=== PATIENT | male | born 1960 | race Caucasian/White ===

== ENCOUNTER → 2017-06-10 | Outpatient (CLI) | payer OTHER ==
[~2017-06-10] MED LIST: Aspirin EC81 MG PO; CHOL10002 PO; COLE1 PO; GEMF600 PO; GLIP5 PO; INSULANPEN SC; METF500 PO; OMEG1CAP30 PO; Omeprazole20 M1 PO; ZESTORETIC 20-121 EA PO
[2017-06-10 16:44] LABS: Protein, Urine Random 23.7 mg/dL (0.0-11.9)
[2017-06-10 16:50] LABS: Creatinine, Urine Random 90.9 mg/dL (27.00-270.00)
== END | disposition home or self-care (01) ==
LOC: OLS 13:24
PROVIDERS: Internal Medicine
DX: N18.3 Chronic kidney disease, stage 3 (moderate) (principal)
CPT/HCPCS: 82570; 84156

== ENCOUNTER 2021-03-05 08:22 | Inpatient (IN) | payer OTHER ==
[~2021-03-05] VITALS: Ht 172.7 cm; Wt 82.6 kg
[2021-03-05] MEDS ORDERED: LISI20 PO (09:02)
[2021-03-05] MEDS ORDERED: [UNRECOGNIZED DRUG - CODE] PO (09:02)
[2021-03-05] MEDS ORDERED: GEMFIBROZIL600 MG PO (09:02)
[2021-03-05] MEDS ORDERED: GLIP10ER PO (09:03)
[2021-03-05 09:06] LABS: BASOPHILS ABSOLUTE AUTO 0.05 K/mm3 (0.00-0.23); BASOPHILS PERCENT AUTO 0 % (0-2); EOSINOPHILS ABSOLUTE AUTO 0.15 K/mm3 (0.00-0.68); EOSINOPHILS PERCENT AUTO 1 % (0-6); Hematocrit 38.8 % (37.0-53.0); Hemoglobin 13.7 g/dL (13.5-17.5); IMMATURE GRAN ABSOLUTE AUTO 0.05 K/mm3 (0.00-0.10); IMMATURE GRAN PERCENT AUTO 0 % (0-1); LYMPHOCYTES ABSOLUTE AUTO 2.07 K/mm3 (0.84-5.20); LYMPHOCYTES PERCENT AUTO 14 % (21-46); MONOCYTES ABSOLUTE AUTO 0.83 K/mm3 (0.16-1.47); MONOCYTES PERCENT AUTO 6 % (4-13); Mean Corpuscular HGB 30.9 pg (26.0-34.0); Mean Corpuscular HGB Conc 35.3 g/dL (31.5-36.5); Mean Corpuscular Volume 87 fL (80-100); Mean Platelet Volume 9.7 fL (9.1-12.4); NEUTROPHILS ABSOLUTE AUTO 11.46 K/mm3 (1.96-9.15); NEUTROPHILS PERCENT AUTO 79 % (41-73); Platelet Count 297 K/mm3 (150-400); RDW Coefficient Variation 12.4 % (11.7-14.2); RDW Standard Deviation 39.7 fL (35.1-46.3); Red Blood Cell Count 4.44 M/mm3 (4.30-5.90); White Blood Cell Count 14.61 K/mm3 (4.00-11.30)
[2021-03-05 09:38] LABS: Alanine Aminotransfer (ALT/SGP 19 U/L (12-78); Albumin, Blood 3.3 g/dL (3.4-5.0); Albumin/Globulin Ratio 0.7 (0.8-1.8); Alk Phos 125 U/L (50-136); Anion Gap 8 mmol/L (6-16); Aspartate Aminotrans (AST/SGOT 18 U/L (12-37); Bilirubin, Total 0.3 mg/dL (0.1-1.0); Blood Urea Nitrogen 25 mg/dL (8-24); Bun/Creatinine Ratio 26.3 (12.0-20.0); CO2, Blood 22 mmol/L (21-32); Calcium, Blood 9.5 mg/dL (8.5-10.1); Chloride, Blood 107 mmol/L (98-108); Creatinine, Blood 0.95 mg/dL (0.60-1.20); Globulin, Blood 4.5 g/dL (2.2-4.0); Glomerular Filtration Rate >60 (60-); Glucose, Blood 211 mg/dL (70-99); Potassium, Blood 3.8 mmol/L (3.5-5.5); Sodium, Blood 137 mmol/L (136-145); Total Protein, Blood 7.8 g/dL (6.4-8.2)
[2021-03-05 11:01] LABS: Anti-Xa UFH, PHA Monitoring <0.10 IU/mL; International Normalized Ratio 0.99; Prothrombin Time Results 10.4 Sec (9.7-11.5)
[2021-03-05] MEDS ORDERED: ACET500 PO (14:18)
[2021-03-05] MEDS ORDERED: IBUP600 PO (14:18)
--- NOTE | 2021-03-05 17:47 | NUR ---
PT ADMITTED TO ROOM 362 VIA STRETCHER FROM ED MOVED SELF OVER TO BED. ORIENTED TO ROOM SET UP AND BATHROOM. DENIES CHEST PAIN, VSS. TELE SET UP, SR 77. ON HEPARIN GTT. GIVEN XERALTO LOADING DOSE. DRINKING WATER AND WILL HAVE DINNER TONIGHT. AWAITING BED AT [facility] IN [place]. PT A/O X4. INSTRUCTED TO GET URINE FOR UA.
[2021-03-05 20:49] LABS: U Amphetamine Screen Not Detected; U Barbituate Screen Not Detected; U Benzodiazapine Screen Not Detected; U Buprenorphine Screen Not Detected; U Cannabinoids Screen DETECTED; U Cocaine Screen Not Detected; U Methadone Screen Not Detected; U Methamphetamine Screen Not Detected; U Opiates Screen Not Detected; U Oxycodone Screen Not Detected; U Phencyclidine Screen Not Detected; U Propoxyphene Screen Not Detected
[2021-03-06 05:51] LABS: BASOPHILS ABSOLUTE AUTO 0.06 K/mm3 (0.00-0.23); BASOPHILS PERCENT AUTO 1 % (0-2); EOSINOPHILS ABSOLUTE AUTO 0.16 K/mm3 (0.00-0.68); EOSINOPHILS PERCENT AUTO 2 % (0-6); Hematocrit 35.5 % (37.0-53.0); Hemoglobin 12.3 g/dL (13.5-17.5); IMMATURE GRAN ABSOLUTE AUTO 0.03 K/mm3 (0.00-0.10); IMMATURE GRAN PERCENT AUTO 0 % (0-1); LYMPHOCYTES ABSOLUTE AUTO 2.71 K/mm3 (0.84-5.20); LYMPHOCYTES PERCENT AUTO 31 % (21-46); MONOCYTES ABSOLUTE AUTO 0.67 K/mm3 (0.16-1.47); MONOCYTES PERCENT AUTO 8 % (4-13); Mean Corpuscular HGB 30.4 pg (26.0-34.0); Mean Corpuscular HGB Conc 34.6 g/dL (31.5-36.5); Mean Corpuscular Volume 88 fL (80-100); Mean Platelet Volume 9.8 fL (9.1-12.4); NEUTROPHILS ABSOLUTE AUTO 5.09 K/mm3 (1.96-9.15); NEUTROPHILS PERCENT AUTO 58 % (41-73); Platelet Count 251 K/mm3 (150-400); RDW Coefficient Variation 12.3 % (11.7-14.2); RDW Standard Deviation 39.8 fL (35.1-46.3); Red Blood Cell Count 4.05 M/mm3 (4.30-5.90); White Blood Cell Count 8.72 K/mm3 (4.00-11.30)
[2021-03-06 06:54] LABS: Alanine Aminotransfer (ALT/SGP 19 U/L (12-78); Albumin, Blood 2.9 g/dL (3.4-5.0); Albumin/Globulin Ratio 0.8 (0.8-1.8); Alk Phos 111 U/L (50-136); Anion Gap 8 mmol/L (6-16); Aspartate Aminotrans (AST/SGOT 17 U/L (12-37); Bilirubin, Total 0.3 mg/dL (0.1-1.0); Blood Urea Nitrogen 22 mg/dL (8-24); Bun/Creatinine Ratio 20.8 (12.0-20.0); CHOL/HDL RATIO 8.4; CO2, Blood 23 mmol/L (21-32); Calcium, Blood 8.8 mg/dL (8.5-10.1); Chloride, Blood 108 mmol/L (98-108); Cholesterol 251 mg/dL (50-200); Creatinine, Blood 1.06 mg/dL (0.60-1.20); Globulin, Blood 3.7 g/dL (2.2-4.0); Glomerular Filtration Rate >60 (60-); Glucose, Blood 194 mg/dL (70-99); HDL Cholesterol 30 mg/dL (>39); LDL/HDL RATIO 6.2; Low Density Lipoprotein Chol 185 mg/dL (0-110); Magnesium, Blood 1.6 mg/dL (1.6-2.4); Potassium, Blood 3.9 mmol/L (3.5-5.5); Sodium, Blood 139 mmol/L (136-145); Total Protein, Blood 6.6 g/dL (6.4-8.2); Triglycerides 181 mg/dL (30-160); Very Low Density Lipoprot Chol 36 mg/dL (6-32)
--- NOTE | 2021-03-06 16:50 | NUR ---
SHIFT SUMMARY PT AWAITING BED AT [facility] IN [place]. HEPARIN INCREASED THIS SHIFT TO 28.2 ML/HR ORDERED. PT GAVE HIMSELF A SPONGEBATH TODAY. IND IN ROOM. CURRENTLY RESTING IN BED WITH CALL LIGHT IN REACH. TROPONINS TRENDING DOWN. PT DENIES CP T/O SHIFT. NO OTHER ACUTE CHANGES IN ASSESSMENT AT THIS TIME. VS REVIEWED.
--- NOTE | 2021-03-07 06:38 | NUR ---
SHIFT SUMMARY PT ALERTT AND ORIENTED. STILL IN HEPARIN DRIP. NO S/S OF ADVERSE REACTION. CALL LIGHT WHITIN REACH. KEEP MONITORING
[2021-03-07 15:01] LABS: Hematocrit 33.6 % (37.0-53.0); Hemoglobin 12.2 g/dL (13.5-17.5); Mean Corpuscular HGB 30.9 pg (26.0-34.0); Mean Corpuscular HGB Conc 36.3 g/dL (31.5-36.5); Mean Corpuscular Volume 85 fL (80-100); Mean Platelet Volume 9.5 fL (9.1-12.4); Platelet Count 279 K/mm3 (150-400); RDW Coefficient Variation 12.1 % (11.7-14.2); RDW Standard Deviation 37.8 fL (35.1-46.3); Red Blood Cell Count 3.95 M/mm3 (4.30-5.90); White Blood Cell Count 9.17 K/mm3 (4.00-11.30)
--- NOTE | 2021-03-07 18:10 | NUR ---
SHIFT SUMMARY: PT A/O X 4 IND, PLEASANT AND COOPERATIVE. PT HAD NO ACUTE CHANGES THIS SHIFT, NO REPORTS OF CP/SOB WITH EXERTION. PT CONTINUES TO RECEIVE HEPARIN THROUGH IV WITH NO CHANGE TO RATE THIS SHIFT. PT TOLERATING WELL. NO ACUTE CHANGE THIS SHIFT. PER TELE PT IN NSR.
--- NOTE | 2021-03-08 04:08 | NUR ---
SHIFT SUMMARY ADMITTED FOR NSTEMI. FULL CODE. TELEMETRY: NSR @ 63 BPM. ACHS CHEMSTICKS. HEPARIN DRIP INFUSING. AWAITING A BED TO OPEN AT [facility] FOR A HIGH RISK PCI. HE IS A&O X4, INDEPENDENT. HE DENIES CP. NO NEW CONCERNS THIS SHIFT.
[2021-03-08 05:10] LABS: Hematocrit 34.7 % (37.0-53.0); Hemoglobin 12.1 g/dL (13.5-17.5); Mean Corpuscular HGB 30.3 pg (26.0-34.0); Mean Corpuscular HGB Conc 34.9 g/dL (31.5-36.5); Mean Corpuscular Volume 87 fL (80-100); Mean Platelet Volume 9.7 fL (9.1-12.4); Platelet Count 263 K/mm3 (150-400); RDW Coefficient Variation 12.2 % (11.7-14.2); RDW Standard Deviation 39.2 fL (35.1-46.3); White Blood Cell Count 7.14 K/mm3 (4.00-11.30)
[2021-03-08 05:28] LABS: Albumin, Blood 2.8 g/dL (3.4-5.0); Anion Gap 6 mmol/L (6-16); Blood Urea Nitrogen 19 mg/dL (8-24); Bun/Creatinine Ratio 19.2 (12.0-20.0); CO2, Blood 23 mmol/L (21-32); Chloride, Blood 110 mmol/L (98-108); Creatinine, Blood 0.99 mg/dL (0.60-1.20); Glomerular Filtration Rate >60 (60-); Glucose, Blood 202 mg/dL (70-99); Phosphorus, Blood 3.2 mg/dL (2.5-4.9); Potassium, Blood 3.9 mmol/L (3.5-5.5); Sodium, Blood 139 mmol/L (136-145)
--- NOTE | 2021-03-08 18:40 | NUR ---
END OF SHIFT SUMMARY: PATIENT DENIED PAIN, DIZZINESS, SHORTNESS OF BREATH, AND NUMBNESS/TINGLING THROUGHOUT THE SHIFT. PATIENT WAS CALM AND COOPERATIVE THROUGHOUT THE SHIFT. PATIENT REPORTED UNDERSTANDING THAT HE WOULD BE HERE AT LEAST THROUGH THE WEEKEND PENDING A BED IN THE [facility] ARE[facility]. PATIENT CONTINUES TO BE INDEPENDENT IN THE ROOM. AMBULATES WITHOUT DIFFICULTY. SLIDING SCALE INCREASED TO MEDIUM TODAY. PATIENT TOLERATED WELL. PATIENT PARTICIPATES IN CARE AND WORKS TO FOLLOW RECOMMENDATIONS.
--- NOTE | 2021-03-09 04:33 | NUR ---
SHIFT SUMMARY ADMITTED FOR NSTEMI. FULL CODE. PLAN IS FOR TRANSFER TO A [facility] THAT CAN PERFORM A HIGH RISK PCI. TELEMETRY: NSR @ 68 BPM. ACHS CHEMSTICKS. HEPARIN DRIP INFUSING ORDERED. HE IS A&O X4, INDEPENDENT. DENIES CP. NO NEW CONCERNS THIS SHIFT.
--- NOTE | 2021-03-09 18:12 | NUR ---
SPOKE TO DR RAMIREZ- PT BG 117 THIS EVENING HOWEVER PREVIOUS SUGARS WERE IN THE 200'S. PT NOW HAS A LOADING DOSE OF 5 UNITS PLUS SLIDING SCALE ORDERED. PPT DOES NOT QUALIFY FOR SS INSULIN AT THIS TIME. ORDER TO HOLD 5 UNIT LOADING DOSE AND GIVE A OT 3 UNIT DOSE WITH THE PT DINNER.
--- NOTE | 2021-03-09 18:30 | NUR ---
SHIFT SUMMARY- PPT ALLERT AND ORIENTED X4. PT CURRENTLY SITTING UP IN BED CALL LIGHT IN REACH, NO S&S OF DISTRESS NOTED T/O THE SHIFT. PT HAS DENIED ANY CP OR PRESSURE T/O THE DAY. HEPARIN DRIP CURRENTLY RUNNING RATE DETERMINED BY PHARMACY, NO CHANGE T/O THE SHIFT. PT IS INDEPENDENT IN THE ROOM AND THE HALLS. ON TELE SINUS RYTHM. WILL CTM AND PASS ON TO NIGHT RN IN BEDSIDE REPORT.
--- NOTE | 2021-03-10 05:11 | NUR ---
VSS. AOX4, ABLE TO VERBALIZE NEEDS. NO C/O OF C.PAIN OR SOB. CALM AMD COOPERATIVE WITH CARE. HEPARIN GTT CURRENLTY INFUSING @ 17U/KG/HR OR 28.2ML/HR. NO ADJUSTMENTS MADE THIS SHIFT. NO ACUTE ISSUES NOTED. CALL LIGHT IN REACH. SAFTEY MEASURES IN PLACE
[2021-03-10 05:39] LABS: Hematocrit 33.8 % (37.0-53.0); Hemoglobin 11.8 g/dL (13.5-17.5); Mean Corpuscular HGB 30.6 pg (26.0-34.0); Mean Corpuscular HGB Conc 34.9 g/dL (31.5-36.5); Mean Corpuscular Volume 88 fL (80-100); Mean Platelet Volume 9.8 fL (9.1-12.4); Platelet Count 245 K/mm3 (150-400); RDW Coefficient Variation 12.4 % (11.7-14.2); RDW Standard Deviation 39.8 fL (35.1-46.3); Red Blood Cell Count 3.85 M/mm3 (4.30-5.90); White Blood Cell Count 5.95 K/mm3 (4.00-11.30)
[2021-03-10 06:37] LABS: Albumin, Blood 2.8 g/dL (3.4-5.0); Anion Gap 7 mmol/L (6-16); Blood Urea Nitrogen 12 mg/dL (8-24); Bun/Creatinine Ratio 12.1 (12.0-20.0); CO2, Blood 22 mmol/L (21-32); Chloride, Blood 111 mmol/L (98-108); Creatinine, Blood 0.99 mg/dL (0.60-1.20); Glomerular Filtration Rate >60 (60-); Glucose, Blood 171 mg/dL (70-99); Phosphorus, Blood 4.1 mg/dL (2.5-4.9); Sodium, Blood 140 mmol/L (136-145)
--- NOTE | 2021-03-10 12:50 | NUR ---
HEPARIN GTT DISCONTINUED
--- NOTE | 2021-03-10 17:09 | NUR ---
SHIFT SUMMARY HEPARIN GTT DISCONTINUED TODAY. PT STILL WAITING FOR BED AT [facility] FOR PCI. PT DEPRESSED THIS AFTERNOON. PT STATES HE WAS TOLD BY THE DR HE WILL LIKELY NOT BE HOME FOR THANKSGIVING, SO PT HAS BEEN VERY DISCOURAGED TODAY. NO ACUTE CHANGES IN ASSESSMENT AT THIS TIME. VS REVIEWED. PT RESTING IN BED. CALL LIGHT IN REACH.
[2021-03-11 04:47] LABS: Hematocrit 36.1 % (37.0-53.0); Hemoglobin 12.7 g/dL (13.5-17.5); Mean Corpuscular HGB 30.5 pg (26.0-34.0); Mean Corpuscular HGB Conc 35.2 g/dL (31.5-36.5); Mean Corpuscular Volume 87 fL (80-100); Platelet Count 302 K/mm3 (150-400); RDW Coefficient Variation 12.4 % (11.7-14.2); RDW Standard Deviation 39.9 fL (35.1-46.3); Red Blood Cell Count 4.16 M/mm3 (4.30-5.90); White Blood Cell Count 8.89 K/mm3 (4.00-11.30)
[2021-03-11 05:17] LABS: Anion Gap 7 mmol/L (6-16); Blood Urea Nitrogen 12 mg/dL (8-24); Bun/Creatinine Ratio 12.3 (12.0-20.0); CO2, Blood 23 mmol/L (21-32); Calcium, Blood 9.4 mg/dL (8.5-10.1); Chloride, Blood 111 mmol/L (98-108); Creatinine, Blood 0.98 mg/dL (0.60-1.20); Glomerular Filtration Rate >60 (60-); Glucose, Blood 142 mg/dL (70-99); Phosphorus, Blood 4.1 mg/dL (2.5-4.9); Potassium, Blood 4.1 mmol/L (3.5-5.5); Sodium, Blood 141 mmol/L (136-145)
--- NOTE | 2021-03-11 06:25 | NUR ---
VSS. AOX4, INDEPENDENT IN ROOM. ABLE TO MAKE NEEDS KNOWN. NO C/O OF C.PAIN OR SOB. SINUS ON TELE WITH HR OF 65. WAS ALERTED ONCE THIS SHIFT PT ABHILASH WITH HR OF 45. PT REFUSED NIGHTIME INSULIN, SAYS HE HADN'T EATEN AND DIDNT SEE THE NEED FOR IT. PT REFUSED ASCULTATION OF ASSESSMENT. HE HAS BEEN CALM BUT WITHDRAWN THIS SHIFT. NO OTHER ISSUES NOTED. CALL LIGHT IN REACH
--- NOTE | 2021-03-11 16:30 | NUR ---
SHIFT SUMMARY PT AWAITING BED AT [facility] IN [place]. DENIES CP TODAY. SHOWERED & IND IN ROOM. PT DEPRESSED THIS AM ABOUT HIS CURRENT SITUATION AND STATED "I AM THINKING ABOUT LEAVING AND DRIVING THERE MYSELF". PT VALIDATED AND REMINDED THAT HE IS AT A VERY HIGH RISK FOR A RI. PT NOW IN A BETTER MOOD AND SEEMS OKAY WITH STAYING ANOTHER NIGHT. NO OTHER ACUTE CHANGES IN ASSESSMENT AT THIS TIME. VS REVIEWED.
--- NOTE | 2021-03-12 04:23 | NUR ---
SHIFT SUMMARY NO ACUTE CHANGES TO REPORT THIS SHIFT. PT HAS RESTED T/O THE SHIFT. HE DENIES CHEST PAIN OR ANY OTHER COMPLAINTS. VITALS ARE STABLE, PT IS SR ON TELE. STILL AWAITING [place]BRA TRANSFER AT THIS TIME. BED IN LOWEST POSITION, CALL LIGHT WITHIN REACH.
--- NOTE | 2021-03-12 17:07 | NUR ---
SHIFT SUMMARY PT AXO, PLEASANT AND COOPERATIVE WITH CARE. INDEPENDENT AND UP AD SANTANA IN ROOM. ON TELE, NSR AT 68 THIS MORNING. PATIENT DENIES CHEST PAIN AND PRESSURE. VSS. CBG ACHS, SEE RESULTS, MEDICATED PER EMAR. PT FRUSTRATED THAT TRANSFER IS TAKING SO LONG. THERAPEUTIC COMMUNICATION AND ACTIVE LISTENING UTILIZED. BED IN LOW POSITION, CALL LIGHT WITHIN REACH.
--- NOTE | 2021-03-13 06:11 | NUR ---
SHIFT SUMMARY PATIENT ALERT AND ORIENTED. HAD NO COMPLAINTS OF PAIN OR SHORTNESS OF BREATH. NO ACUTE ISSUES NOTED OVERNIGHT. CALL LIGHT WITHIN REACH. REPORT GIVEN TO ONCOMING RN.
--- NOTE | 2021-03-13 18:40 | NUR ---
SSHIFT SUMMARY- PT ALERT ANND ORIENTED, INDEPENDENT IN THE ROOM. RUNNING NSR ON TELE. PT AWAITING COBRA TRANSFER TO [facility] FOR CARDIAC CARE. PT HAS MENTIONED TO THE DR THAT HE WOULD LIKE TO LEAVE, DR AWARE POSSIBLE AMA, HOWEVER THE PT STATED AT THIS TIME HE WILL CONTINUE WITH THE HOPE A BED MAY COME AVAILABLE AT [facility]. PT HAD A SHOWER TODAY. BG WAS A BIT BELOW 100 THIS EVENING AND THE PT DECLINED TO EAT DINNER, SAYING HE JUST WANTS TO SLEEP HE FEELS DEPRESSED. HELD SHORT ACTING INSULIN FOR CJ AT S TIME. PT IN BED SLEEPING, CALL LIGHT IN REACH, NO S&S OF DISTRESS NOTED AT THIS TIME. WILL CTM AND PASS ON TO NIGHT RN IN BEDSIDE REPORT.
--- NOTE | 2021-03-13 21:45 | NUR ---
PHYSICIAN COMMUNICATION CONTACTED TEAM MANAGER PHYSICIAN, DR. KULKARNI, TO NOTIFY HIM THAT THE PATIENT'S BLOOD SUGAR WAS 95, HE DID NOT EAT DINNER AND IS HAVING A POOR APPETITE AT THE MOMENT. INQUIRED IF HIS 10 UNITS OF HS SEMGLEE SHOULD BE HELD. DR KULKARNI SAID TO GIVE 5 UNITS OF SEMGLEE INSTEAD.
--- NOTE | 2021-03-14 05:39 | NUR ---
SHIFT SUMMARY PATIENT ALERT AND ORIENTED. VERY WITHDRAWN AND DEPRESSED. NOT WANTING TO INTERACT WITH STAFF. HAD NO COMPLAINTS OF PAIN OR SHORTNESS OF BREATH. NO ACUTE ISSUES NOTED OVERNIGHT. CALL LIGHT WITHIN REACH. REPORT GIVEN TO ONCOMING RN.
--- NOTE | 2021-03-14 11:21 | NUR ---
PT REFUSING ALL CARE AGAIN TODAY. REFUSED AM MEDS AND INSULIN. ALSO REFUSED SHIFT ASSESSMENT. REPORTS THAT HE IS FINE. DR LUCA AYALA.
--- NOTE | 2021-03-14 16:10 | NUR ---
SHIFT SUMMARY PT SLEEPING AT START OF SHIFT. DOES NOT WANT TO BE BOTHERED. PT REFUSING ALL CARE. REFUSING ALL MEALS. PER SHIFT REPORT, PT LEFT [facility] "AMA" AND CAME HERE. PT NEEDING HIGH RISK MEDICAL FRONT DESK COORDINATOR PROCEDURE. CARDIOLOGY CONSULTED. PT NEEDING TO GO BACK TO [facility] FOR PROCEDURE. PT CURRENTLY WAITING FOR A BED. PER SHIFT REPORT, PT WANTING TO GO "AMA" FROM HERE, BUT HASN'T YET. PT WANTING IV OUT AND TELE D/C'D. DR SEGOVIA UP DATED ON PT'S STATMENTS. PT INFORMED THAT IV AND TELE REMAIN ON WHILE IN CARE, BUT CAN BE REMOVED IF PT IS GOING "AMA". NO ACUTE CHANGES TO PRESENT. BP INCREASED SLIGHTLY THIS AFTERNOON; SEE CHART, D/T PT NOT TAKING AM MEDS. PT INDEPENDENT IN RM TO BTHRM. DENIED FURTHER NEEDS. CALL LT IN REACH.
--- NOTE | 2021-03-15 03:35 | NUR ---
SHIFT SUMMARY PT ON TELE, SINUS ABHILASH AT 55 CURRENTLY. DAYSHIFT NURSE STATED PT WAS REFUSING CARE PREVIOUSLY. TONIGHT PT TOOK HIS MEDS AND HAD AN EVENING SNACK. PT IS PLEASANT. NO ACUTE CHANGES. CALL LIGHT WITHIN REACH AND WILL CONTINUE TO MONITOR.
--- NOTE | 2021-03-15 08:59 | NUR ---
PATIENT C/O RIGHT JAW PAIN/THROBBING.
--- NOTE | 2021-03-15 17:23 | NUR ---
PATIENT IS ALERT AND ORIENTED AND COOPERATIVE WITH CARE. C/O RIGHT SIDED JAW/TOOTH PAIN WHICH DR. SEGOVIA ASSESSED. THE PATIENT'S SON IS AT THE BEDSIDE AT THIS TIME. WILL CONTINUE TO MONITOR
--- NOTE | 2021-03-15 19:13 | NUR ---
AFFECT CHEERFUL. WATCHING TV, REMARKED ABOUT THE FOOTBALL GAME ON. STATED FELT "FINE". NO NOTED S/S ACUTE DISTRESS. CALL LIGHT IN REACH
--- NOTE | 2021-03-16 03:58 | NUR ---
SHIFT SUMMARY NO ACUTE CHANGES THROUGHOUT SHIFT. NO HUMALOG COVERAGE NEEDED. RESTING IN BED DURING SHIFT. NO PAIN, NO COMPLAINTS. CALL LIGHT WITHIN REACH. WILL CONTINUE TO MONITOR.
[2021-03-16 05:24] LABS: Hematocrit 35.1 % (37.0-53.0); Hemoglobin 12.4 g/dL (13.5-17.5); Mean Corpuscular HGB 30.7 pg (26.0-34.0); Mean Corpuscular HGB Conc 35.3 g/dL (31.5-36.5); Mean Corpuscular Volume 87 fL (80-100); Mean Platelet Volume 9.3 fL (9.1-12.4); Platelet Count 301 K/mm3 (150-400); RDW Coefficient Variation 12.4 % (11.7-14.2); RDW Standard Deviation 39.7 fL (35.1-46.3); Red Blood Cell Count 4.04 M/mm3 (4.30-5.90); White Blood Cell Count 9.18 K/mm3 (4.00-11.30)
[2021-03-16 05:57] LABS: Anion Gap 8 mmol/L (6-16); Blood Urea Nitrogen 25 mg/dL (8-24); Bun/Creatinine Ratio 24.3 (12.0-20.0); CO2, Blood 23 mmol/L (21-32); Calcium, Blood 9.2 mg/dL (8.5-10.1); Chloride, Blood 110 mmol/L (98-108); Creatinine, Blood 1.03 mg/dL (0.60-1.20); Glomerular Filtration Rate >60 (60-); Glucose, Blood 211 mg/dL (70-99); Potassium, Blood 4.1 mmol/L (3.5-5.5); Sodium, Blood 141 mmol/L (136-145)
--- NOTE | 2021-03-16 18:42 | NUR ---
ALERT. ORIENTED. INDEPENDENT IN ROOM AND HALLWAY W/STEADY GAIT. TELE ON AND SR IN 60'S PER TECH. AWARE OF NEED FOR TRANSFER TO [facility] WHEN BED AVAILABLE. PATIENT WAS IN [facility] BUT LEFT AMA PRIOR TO THIS ADMIT. COOPERATIVE. DENIES ANY C.P. UNLABORED RESPIRATIONS. TM
--- NOTE | 2021-03-17 03:40 | NUR ---
BATCH AND FURNACE MANAGER SUMMARY HAS BEEN RESTING QUIETLY WITH FEW INTERRUPTIONS SINCE HS. BLOOD SUGAR IN 300'S AT HS, INSULIN COVERAGE PER JUN, WAS ADMINISTERED BY SELF WITH RN SUPERVISION. NO C/O CHEST PAIN, VSS. AWAITING BED IN [place], (PT STATED POSSIBLE "OPEN HEART SURGERY"). CALL LIGHT IN REACH
--- NOTE | 2021-03-17 12:30 | NUR ---
PT LEFT AMA- PT REQUESTED STAFF TO REMOVE HIS IV BECAUSE HE WAS GOING TO LEAVE THE HOSPITAL. RN EXPLAINED THAT IF HE LEAVES IT WILL BE AGAINST MEDICAL ADVICE. PT STATED HE WILL NOT SIGN THE AMA FORM. CALLED DR SEGOVIA AND HE IS AWARE OF THE PT CHOICE. DR SEGOVIA ASKED THAT THE PT BE WILLING TO WAIT ONE MORE HOUR BEFORE LEAVING WHILE HE WAITS FOR A CALL BACK FROM [facility]. PT DECLINED AND WALKED OUT UNDER HIS OWN POWER. IS AWARE THE PT LEFT AMA.
== END 2021-03-17 12:10 | disposition left against medical advice (07) | DRG 282 ==
LOC: ER 08:22 → MEDS 13:24 → ERHOLD 13:24 → MEDS 15:44
PROVIDERS: Internal Medicine; Nurse Practitioner Acute Care; Physician Assistant; ADMIT Internal Medicine
DX: I21.4 Non-ST elevation (NSTEMI) myocardial infarction (principal); I10 Essential (primary) hypertension; E78.5 Hyperlipidemia, unspecified; E11.9 Type 2 diabetes mellitus without complications; K02.9 Dental caries, unspecified; Z28.21 Immunization not carried out because of patient refusal; F41.9 Anxiety disorder, unspecified; I25.10 Atherosclerotic heart disease of native coronary artery without angina pectoris; Z88.5 Allergy status to narcotic agent; Z79.82 Long term (current) use of aspirin; Z79.84 Long term (current) use of oral hypoglycemic drugs; Z79.899 Other long term (current) drug therapy; Z98.890 Other specified postprocedural states; Z87.891 Personal history of nicotine dependence
CPT/HCPCS: 36415; 71046; 80048; 80053; 80061; 80069; 82947; 83036; 83735; 84484; 85025; 85027; 85520; 85610; 93005; 93010; 93306; 96365; 96366; 99285-25; A9270; J1644; J1650; J1815

== ENCOUNTER 2022-08-18 09:20 | Day surgery (SDC) | payer OTHER ==
[~2022-08-18] VITALS: Ht 172.7 cm; Wt 90.4 kg
[~2022-08-18 09:20] MED LIST changes: +ACET500 PO; +AMLO10 PO; +CLOP75 PO; +Crestor20 MG PO; +GEMFIBROZIL600 MG PO; +GLIP10ER PO; +GLUCOPHAGE1000 M1 PO; +IBUP600 PO; +Isosorbide Mono30 MG PO; +LISI20 PO; +METO25ER PO; +NITR.4SL SL; +Prilosec Otc20 MG PO; +ZESTRIL40 M1 PO; +[UNRECOGNIZED DRUG - CODE] PO
[2022-08-18 11:11] VITALS: BP 123/79
== END 2022-08-18 11:19 | disposition home or self-care (01) ==
LOC: ORSCSDS 09:20
PROVIDERS: Internal Medicine Gastroenterology
PROC: 0DBN8ZX Excision of Sigmoid Colon, Via Natural or Artificial Opening Endoscopic, Diagnostic (ICD-10-PCS; principal; 2022-08-18 10:30)
PROC: 0DBL8ZX Excision of Transverse Colon, Via Natural or Artificial Opening Endoscopic, Diagnostic (ICD-10-PCS; principal; 2022-08-18 10:30)
DX: Z12.11 Encounter for screening for malignant neoplasm of colon (principal); Z86.010 Personal history of colon polyps; K57.32 Diverticulitis of large intestine without perforation or abscess without bleeding; D12.3 Benign neoplasm of transverse colon; K63.5 Polyp of colon; K64.8 Other hemorrhoids; K57.30 Diverticulosis of large intestine without perforation or abscess without bleeding; K22.70 Barrett's esophagus without dysplasia; I10 Essential (primary) hypertension; K58.9 Irritable bowel syndrome, unspecified; K21.9 Gastro-esophageal reflux disease without esophagitis; I25.10 Atherosclerotic heart disease of native coronary artery without angina pectoris; E11.9 Type 2 diabetes mellitus without complications; F41.9 Anxiety disorder, unspecified; I25.2 Old myocardial infarction; Z79.84 Long term (current) use of oral hypoglycemic drugs; Z79.899 Other long term (current) drug therapy
CPT/HCPCS: 82947; 88305; J2704; J7120